=== PATIENT | female | born 1960 | race African-American/Black ===

== ENCOUNTER → 2017-06-06 | Day surgery (SDC) | payer OTHER, MEDICARE ==
[~2017-06-06] MED LIST: AMBIEN10 MG PO; AMITRIPTYLINE H25 MG PO; CALCIUM 5001 TAB PO; CALCIUM1 TAB.CHEW PO; CALTRATE 600 W-1 TAB PO; CELEBREX PO; CORTISONE INJECTION; GABAPENTIN600 MG PO; IBUPROFEN PO; IBUPROFEN800 MG PO; IRON1 TAB PO; KLONOPIN1 MG PO; LIDODERM30 EA TOP; LODINE500 M1 PO; LORTAB 10/500 T1 TAB PO; LORTAB 7.5-5001 TAB PO; LOVENOX SUBQ; MOBIC PO; MULTI-DAY1 TAB PO; MULTIVITAMINS1 EAC3 PO; NEURONTIN300 MG PO; NEURONTIN800 MG PO; OXYCODONE HCL10 MG PO; PERCOCET 10/3251 TAB PO; PERCOCET 5/321 UDTAB PO; PERCOCET7.5 PO; PHENERGAN PO; PHENERGAN25 MG PO; TRILEPTAL300 MG PO; VICODIN 5/500 T1 TAB; VITAMIN D PO; VITAMIN D5000 UNIT PO
--- NOTE | ~2017-06-06 | OR ---
Unit #: [id number] #: [id number] Patient: VÍCTOR LUCAS [id number] [address] [address] [id number] MR#: [id number] NAME: VÍCTOR LUCAS. ROOM: Date of Procedure: 06/06/2017 Admission Date: 06/06/2017 Surgeon: Jimenez Fox M.D. : 1960 Attending Physician: Jimenez Fox M.D. Primary Care Physician: Lila Frost A.P.R.N. OPERATIVE REPORT PREOPERATIVE DIAGNOSIS Chronic regional pain syndrome, lower extremity. POSTOPERATIVE DIAGNOSIS Chronic regional pain syndrome, lower extremity. PROCEDURE PERFORMED Epidural injection for sympathectomy with intravenous sedation and fluoroscopic guidance for needle localization. INDICATIONS FOR PROCEDURE The patient is a 56-year-old female, who has chronic regional pain syndrome affecting left lower extremity following a total knee replacement. She was treated medically with p.r.n. sympathetic blockade. Last injection was done in 11/2016 seven months ago. She had resurgence of the symptoms. We proceed with a repeat injection. We do given this patient via an epidural approach for the sympathectomy due to her difficulty in lying problem. DESCRIPTION OF PROCEDURE The patient was placed in a seated position. Standard monitors were applied. 2 mg of Versed were given for sedation and anxiolysis, which were adequate. Vital signs remained stable. Sterile prep and drape then of the thoracolumbar area was performed. The skin at the L1-L2 level was localized with 1% lidocaine. An 18-gauge FanGager (MyBrandz)tead needle was then advanced via loss of resistance technique and fluoroscopic guidance in toward the epidural space. After confirming proper positioning with fluoroscopy and radiographic contrast, 80 mg Depo-Medrol and 8 mL of 0.125% bupivacaine were deposited. The patient tolerated the procedure otherwise well and was discharged to the recovery room in stable condition. Dictated by... April Curtis/aramis TD: 06/06/2017 11:59 JOB #: [id number] Unit #: [id number] #: [id number] Patient: VÍCTOR LUCAS OPERATIVE REPORT Page 1 of 1 X Jimenez Fox MD X PROCEDURE OPERATIVE NOTE
== END | disposition home or self-care (01) ==
LOC: CCSC 09:56
DX: G90.522 Complex regional pain syndrome I of left lower limb (principal); Z96.652 Presence of left artificial knee joint
CPT/HCPCS: J1040; J2250

== ENCOUNTER 2017-07-31 12:01 | Emergency (ER) | payer MEDICARE ==
[~2017-07-31] VITALS: Ht 162.6 cm; Wt 122.5 kg
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
[~2017-07-31 12:01] MED LIST changes: -MULTIVITAMINS1 EAC3 PO
[2017-07-31] MEDS ORDERED: MULTIVITAMINS1 EAC3 PO (12:18)
== END 2017-07-31 13:25 | disposition home or self-care (01) ==
LOC: CFTX 12:01 → CED 12:01 → CFTX 13:15
DX: S06.0X0A Concussion without loss of consciousness, initial encounter (principal); W22.8XXA Striking against or struck by other objects, initial encounter; S00.93XA Contusion of unspecified part of head, initial encounter; Z79.899 Other long term (current) drug therapy; Z91.040 Latex allergy status
CPT/HCPCS: 70450; 99283